=== PATIENT | male | born 1940 | race African-American/Black ===

== ENCOUNTER 2022-05-11 19:53 | Inpatient (IN) | payer MEDICARE ==
[~2022-05-11] VITALS: Ht 185.4 cm; Wt 83.0 kg
[2022-05-11] MEDS ORDERED: VANCOMYCIN 1G PREMIX 200 ML IV SCH (20:45)
[2022-05-11] MEDS ORDERED: SODIUM CHLORIDE 0.9% 1000ML BAG (SEPSIS BOLUS) IV ONE (20:45)
[2022-05-11] MEDS ORDERED: CEFTRIAXONE 1 G PREMIX 50 ML IV ONE (20:45)
[2022-05-11 21:11] LABS: HEMOGLOBIN. 11.1 g/dL (14.0-18.0); MEAN CORPUSCULAR HEMOGLOBIN 31.7 pg (28.0-32.0); MEAN CORPUSCULAR VOLUME 90.9 fL (80.0-94.0); MEAN PLATELET VOLUME 8.5 fl (7.4-10.4); PLATELET 294 x1000/uL (130-400); RED BLOOD CELL COUNT 3.52 mill/uL (4.7-6.1); RED CELL DISTRIBUTION WIDTH 12.7 % (11.6-14.6)
[2022-05-11 21:20] LABS: CHLORIDE 95 mEq/L (98-107)
[2022-05-11] MEDS ORDERED: ACETAMINOPHEN 325MG TABLET PO ONE (21:45)
[2022-05-11 21:58] LABS: CLARITY URINE CLEAR (CLEAR); COLOR URINE DARK YELLOW (YELLOW); KETONES URINE NEGATIVE (NEGATIVE); LEUKOCYTE ESTERASE URINE NEGATIVE (NEGATIVE); NITRITE URINE NEGATIVE (NEGATIVE); OCCULT BLOOD URINE 1+ (NEGATIVE); PROTEIN URINE 2+ (NEGATIVE); SPECIFIC GRAVITY URINE 1.013 (1.005-1.030)
[2022-05-11 22:25] LABS: PLATELET ESTIMATE NORMAL
[2022-05-12] VITALS (7 sets, daily range): BP systolic 118–134; BP diastolic 64–73
[2022-05-12] MEDS ORDERED: CEFTRIAXONE 1 G PREMIX 50 ML IV SCH (01:15)
[2022-05-12] MEDS ORDERED: ONDANSETRON HCL 4MG/2ML INJ IV PRN (01:15)
[2022-05-12] MEDS ORDERED: ZOLPIDEM TARTRATE 5MG TABLET PO PRN (01:15)
[2022-05-12] MEDS ORDERED: VANCOMYCIN 1G PREMIX 200 ML IV SCH (01:15)
[2022-05-12] MEDS ORDERED: POTASSIUM CHLORIDE 20MEQ TABLET SR PO NR (01:30)
[2022-05-12 06:15] LABS: BASOPHILS % 0.3 % (0.0-2.0); LYMPHOCYTES % 7.1 % (20.0-50.0); MEAN CORPUSCULAR HEMOGLOBIN 31.4 pg (28.0-32.0); MEAN CORPUSCULAR VOLUME 93.9 fL (80.0-94.0); MEAN PLATELET VOLUME 8.6 fl (7.4-10.4); MONOCYTES % 11.2 % (2.0-8.0); NEUTROPHILS % 81.4 % (40.0-76.0); PLATELET 293 x1000/uL (130-400); RED BLOOD CELL COUNT 3.51 mill/uL (4.7-6.1)
[2022-05-12 06:31] LABS: CHLORIDE 99 mEq/L (98-107)
[2022-05-12] MEDS: ENOXAPARIN 40MG/0.4ML SYR SUBCUT SCH (10:01)
[2022-05-12] MEDS: POTASSIUM CHLORIDE 20MEQ TABLET SR PO NR (11:39)
[2022-05-12] MEDS ORDERED: VANCOMYCIN 1GM PMX (XELLIA) 200 ML IV SCH (13:00)
[2022-05-12] MEDS ORDERED: AZITHROMYCIN 500 MG TABLET PO NR (14:45)
[2022-05-12] MEDS: CEFTRIAXONE 1,000 MG in DEXTROSE 5% WATER 50 ML IV SCH (20:45)
[2022-05-13] VITALS: BP 145/82
[2022-05-13 04:00] VITALS: BP 134/73
[2022-05-13] MEDS ORDERED: VANCOMYCIN 1GM PMX (XELLIA) 200 ML IV SCH (06:00)
[2022-05-13 07:09] LABS: CHLORIDE 101 mEq/L (98-107)
[2022-05-13 08:00] VITALS: BP 126/67
[2022-05-13] MEDS: AZITHROMYCIN 250 MG TABLET PO SCH ×2 (09:00→11:38)
[2022-05-13] MEDS: ENOXAPARIN 40MG/0.4ML SYR SUBCUT SCH (09:37)
[2022-05-13] MEDS: POTASSIUM CHLORIDE 20MEQ TABLET SR PO NR (11:38)
[2022-05-13 12:00] VITALS: BP 121/72
[2022-05-13 16:00] VITALS: BP 125/71
[2022-05-13 20:00] VITALS: BP 130/54
[2022-05-13] MEDS: CEFTRIAXONE 1,000 MG in DEXTROSE 5% WATER 50 ML IV SCH (20:18)
[2022-05-14] VITALS: BP 124/68
[2022-05-14 04:00] VITALS: BP 115/57
[2022-05-14 08:00] VITALS: BP 120/65
[2022-05-14] MEDS ORDERED: LEVO500T90 MT (08:32)
[2022-05-14] MEDS: ENOXAPARIN 40MG/0.4ML SYR SUBCUT SCH (09:10)
[2022-05-14] MEDS: POTASSIUM CHLORIDE 20MEQ TABLET SR PO NR (10:47)
[2022-05-14 12:00] VITALS: BP 104/59
[2022-05-14 15:58] VITALS: BP 104/59
[2022-05-15] MEDS ORDERED: POTASSIUM CHLORIDE 20MEQ TABLET SR PO SCH (09:00)
== END 2022-05-14 16:50 | disposition home or self-care (01) | DRG 871 ==
LOC: ER 19:53 → 7EST 21:47 → ENRESERV 22:34 → 7WST 05-12 16:55
PROVIDERS: ADMIT Internal Medicine; ATTEND Internal Medicine
DX: A41.89 Other specified sepsis (principal); E43 Unspecified severe protein-calorie malnutrition; G93.41 Metabolic encephalopathy; J12.82 Pneumonia due to coronavirus disease 2019; U07.1 COVID-19; J96.00 Acute respiratory failure, unspecified whether with hypoxia or hypercapnia; N17.0 Acute kidney failure with tubular necrosis; E87.1 Hypo-osmolality and hyponatremia; D64.9 Anemia, unspecified; E87.6 Hypokalemia; I10 Essential (primary) hypertension; R74.01 Elevation of levels of liver transaminase levels; E80.6 Other disorders of bilirubin metabolism; Z68.24 Body mass index [BMI] 24.0-24.9, adult
CPT/HCPCS: 36415; 71045; 76700; 80048; 80053; 81003; 82962; 83605; 83880; 84145; 84484; 85025; 87426; 93005; 97162; 99291; C9803; J0696; J1650; J3370; J7030; J7060